=== PATIENT | male | born 1995 | race Caucasian/White ===

== ENCOUNTER 2017-02-07 19:02 | Emergency (ER) | payer BC, OTHER ==
[2017-02-07 19:11] VITALS: RESP 18
[2017-02-07] MEDS ORDERED: SODIUM CHLORIDE 0.9% 500 ML IV STA (19:18)
[2017-02-07] MEDS ORDERED: ONDANSETRON 4 MG/2 ML VIAL IVP STA (19:18)
[2017-02-07] MEDS ORDERED: SODIUM CHLORIDE 0.9% 1,000 ML IV STA (19:18)
[2017-02-07] MEDS ORDERED: ACETAMINOPHEN TAB 500 MG TAB PO STA (19:46)
[2017-02-07 20:02] LABS: Basophils % (A) 0 %; CH 33.4; CHCM 37.8; Eosinophils % (A) 0 %; HCT 40.3 % (39.0-53.0); HGB 15.1 gm/dL (13.0-17.5); Hyperchromasia Slight; Luc # (Auto) 0.22; Luc % (Auto) 2; Lymphocytes # (A) 0.9 k/uL (1.0-4.8); Lymphocytes % (A) 10 %; MCH 33.1 pg (25.0-35.0); MCHC 37.4 g/dL (31.0-37.0); MCV 88.6 fL (80.0-100.0); Mean Platelet Volume 6.8; Monocytes # (A) 0.5 k/uL (0-1.0); Monocytes % (A) 5 %; Neutrophils % (A) 83 %; RBC 4.56 m/uL (4.30-5.90); WBC 9.7 k/uL (3.8-10.6); WBC (Perox) 9.43
[2017-02-07 20:12] LABS: ALT 44 U/L (21-72); AST 31 U/L (17-59); Alkaline Phosphatase 93 U/L (38-126); Amylase <30 U/L (30-110); Anion Gap 12 mmol/L; Blood Urea Nitrogen 14 mg/dL (9-20); Calcium 9.4 mg/dL (8.4-10.2); Carbon Dioxide 29 mmol/L (22-30); Chloride 93 mmol/L (98-107); Glucose 84 mg/dL (74-99); Non-African American GFR(MDRD) >60 (>60 ml/min/1.73 sqM); Sodium 134 mmol/L (137-145); Total Bilirubin 1.3 mg/dL (0.2-1.3); Total Protein 7.1 g/dL (6.3-8.2)
[2017-02-07 20:22] LABS: Potassium 2.9 mmol/L (3.5-5.1)
[2017-02-07] MEDS ORDERED: POTASSIUM CHLORIDE ER 20 MEQ TAB.ER PO STA (20:22)
--- NOTE | 2017-02-07 20:22 | ED ---
Nausea/Vomiting/Diarrhea HPI - General Chief complaint: Nausea/Vomiting/Diarrhea Stated complaint: diarrhea/dehydration Time Seen by Provider: 02/07/17 19:18 Source: patient, RN notes reviewed Mode of arrival: ambulatory Limitations: no limitations - History of Present Illness Initial comments: 21-year-old male presents emergency department for diarrhea, dehydration. Patient states that he started after enema on and his progress into some nausea, abdominal bloating and diarrhea. Patient states that him and a couple his friends fried up some fish and states that every sick almost more feeling better except for him. Patient states that low-grade temp at home. Patient was seen at [facility] yesterday in which they do some lab work: Today , his white count was elevated at 13 and he had some monthly imbalances. Patient states the discomfort feels rundown and not himself. He denies any dysuria or hematuria. Denies any localized abdominal pain denies any back pain. - Related Data Home Medications Medication Instructions Recorded Confirmed No Known Home Medications [No 02/07/17 02/07/17 Known Home Medications] Allergies Allergy/AdvReac Type Severity Reaction Status Date / Time morphine Allergy Rash/Hives Verified 02/07/17 19:27 midazolam [From Versed] AdvReac Confusion Verified 02/07/17 19:27 promethazine [From Phenergan] AdvReac Unknown Verified 02/07/17 19:27 blood products AdvReac Unknown Uncoded 02/07/17 19:12 Review of Systems ROS Statement: Those systems with pertinent positive or pertinent negative responses have been documented in the HPI. ROS Other: All systems not noted in ROS Statement are negative. 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 Date of last positivie culture/infection: 2009 MDRO Source:: broviac line Past Surgical History: Adenoidectomy, Tonsillectomy Additional Past Surgical History / Comment(s): thoracotomy Past Psychological History: No Psychological Hx Reported Smoking Status: Never smoker Past Alcohol Use History: Occasional Past Drug Use History: None Reported General Exam Limitations: no limitations Course Vital Signs 02/07/17 02/07/17 02/07/17 19:07 19:47 20:46 Temperature 98.9 F 100.9 F H 101.0 F H Pulse Rate 97 88 Respiratory 18 18 Rate Blood Pressure 133/60 108/53 O2 Sat by Pulse 99 99 Oximetry 02/07/17 21:22 Temperature 99.0 F Pulse Rate 81 Respiratory 18 Rate Blood Pressure 115/54 O2 Sat by Pulse 97 Oximetry Medical Decision Making - Medical Decision Making 21-year-old male presents emergency department for her diarrhea nausea low- grade temp. Patient lab work is improved from prior lab work yesterday. Patient's white count went from 13-9. Patient does have some hypokalemia which was replaced with 4 mg of came here. He is advised to increase fluids including drinking Gatorade or Powerade at home. Patient's symptoms are most likely related to a viral diarrhea secondary to multiple people being sick and everyone eating fish. Especially self-limiting disease. We did obtain stool - Lab Data Result diagrams: 02/07/17 19:41 02/07/17 19:41 Lab Results 02/07/17 02/07/17 Range/Units 19:41 19:41 WBC 9.7 (3.8-10.6) k/uL RBC 4.56 (4.30-5.90) m/uL Hgb 15.1 (13.0-17.5) gm/dL Hct 40.3 (39.0-53.0) % MCV 88.6 (80.0-100.0) fL MCH 33.1 (25.0-35.0) pg MCHC 37.4 H (31.0-37.0) g/dL RDW 12.0 (11.5-15.5) % Plt Count 236 (150-450) k/uL Neutrophils % 83 % Lymphocytes % 10 % Monocytes % 5 % Eosinophils % 0 % Basophils % 0 % Neutrophils # 8.0 H (1.3-7.7) k/uL Lymphocytes # 0.9 L (1.0-4.8) k/uL Monocytes # 0.5 (0-1.0) k/uL Eosinophils # 0.0 (0-0.7) k/uL Basophils # 0.0 (0-0.2) k/uL Hyperchromasia Slight Sodium 134 L (137-145) mmol/L Potassium 2.9 L* (3.5-5.1) mmol/L Chloride 93 L (98-107) mmol/L Carbon Dioxide 29 (22-30) mmol/L Anion Gap 12 mmol/L BUN 14 (9-20) mg/dL Creatinine 1.18 (0.66-1.25) mg/dL Est GFR (MDRD) Af Amer >60 (>60 ml/min/1.73 sqM) Est GFR (MDRD) Non-Af >60 (>60 ml/min/1.73 sqM) Glucose 84 (74-99) mg/dL Calcium 9.4 (8.4-10.2) mg/dL Total Bilirubin 1.3 (0.2-1.3) mg/dL AST 31 (17-59) U/L ALT 44 (21-72) U/L Alkaline Phosphatase 93 (38-126) U/L Total Protein 7.1 (6.3-8.2) g/dL Albumin 4.2 (3.5-5.0) g/dL Amylase <30 L (30-110) U/L Lipase 16 L (23-300) U/L Disposition Clinical Impression: Diarrhea, Hypokalemia Disposition: HOME SELF-CARE Condition: Stable Instructions: Acute Diarrhea (ED) Additional Instructions: Please return to the Emergency Department if symptoms worsen or any other concerns. Referrals: Sukhdeep Wang DO [Primary Care Provider] - 1-2 days Time of Disposition: 21:29
[2017-02-07] MEDS ORDERED: SODIUM CHLORIDE 0.9% 1,000 ML IV ONE (20:29)
[2017-02-07] MEDS ORDERED: FAMOTIDINE 20 MG/2 ML VIAL IV STA (20:30)
[2017-02-07] MEDS ORDERED: KETOROLAC 30 MG/ML 1 ML VIAL IVP STA (20:37)
[2017-02-07 21:24] VITALS: BP 115/54; PULSE 81; TEMP 99
== END 2017-02-07 21:39 | disposition home or self-care (01) ==
LOC: EC 19:02
DX: R19.7 Diarrhea, unspecified (principal); E87.6 Hypokalemia; R11.2 Nausea with vomiting, unspecified; R14.0 Abdominal distension (gaseous); Z88.5 Allergy status to narcotic agent; Z88.8 Allergy status to other drugs, medicaments and biological substances; Z91.048 Other nonmedicinal substance allergy status
CPT/HCPCS: 36415; 80053; 82150; 83690; 85025; 87324; 87045; 87329; 89055; 87046; 99284; 96374; 96375 ×2; 96361 ×2; J2405; J1885

== ENCOUNTER → 2017-02-10 | Outpatient (CLI) | payer BC ==
--- NOTE | 2017-02-10 10:58 | XR ---
EXAMINATION TYPE: XR abdomen 1V , ONE VIEW DATE OF EXAM ORDERED: 02/10/2017 HISTORY: A09 diarrhea. COMPARISON: None. FINDINGS: There has been an old-appearing of the left hip. The abdominal gas pattern is within normal limits. There is no evidence of obstruction or free air. N o unusual calcifications are seen. IMPRESSION: NO ACUTE INTRA-ABDOMINAL ABNORMALITY.
--- NOTE | 2017-02-10 11:57 | XR ---
EXAMINATION TYPE: XR abdomen 2V , TWO VIEW DATE OF EXAM ORDERED: 02/10/2017 HISTORY: A09 diarrhea. COMPARISON: None. FINDINGS: There has been an old-appearing of the left hip. The abdominal gas pattern is within normal limits. There is no evidence of obstruction or free air. N o unusual calcifications are seen. IMPRESSION: NO ACUTE INTRA-ABDOMINAL ABNORMALITY.
== END | disposition home or self-care (01) ==
LOC: RADXRYALE 10:44
PROVIDERS: ATTEND Physician Assistant Medical
DX: A09 Infectious gastroenteritis and colitis, unspecified (principal)
CPT/HCPCS: 74020

== ENCOUNTER → 2018-08-27 | Outpatient (CLI) | payer BC ==
--- NOTE | 2018-08-27 14:39 | XR ---
EXAMINATION TYPE: XR chest 2V DATE OF EXAM: 08/27/2018 COMPARISON: Chest x-ray March 30, 2015. HISTORY: Left lower chest pain on and off for 2 months. TECHNIQUE: Frontal and lateral views of the chest are obtained. FINDINGS: There is no focal air space opacity, pleural effusion, or pneumothorax seen. The cardiac silhouette size is within normal limits. Spine is straightened on lateral view. IMPRESSION: No acute cardiopulmonary process.
== END | disposition home or self-care (01) ==
LOC: RADXRYALE 14:10
PROVIDERS: ATTEND Physician Assistant Medical
DX: R07.89 Other chest pain (principal)
CPT/HCPCS: 71046

== ENCOUNTER → 2018-12-29 | Outpatient (CLI) | payer BC ==
--- NOTE | 2018-12-29 13:50 | CT ---
EXAMINATION TYPE: CT femur LT wo con DATE OF EXAM: 12/29/2018 COMPARISON: CT left femur December 20, 2014 HISTORY: Mass and lump on femur just above amputation CT DLP: 560 mGycm Automated exposure control for dose reduction was used. FINDINGS: There is redemonstration of intramedullary wolf with 2 femoral neck fixating screws and proximal trans verse subtrochanteric fixating screw through fracture deformity proximal diaphysis left proximal femu r. Incomplete healing is redemonstrated. Alignment is stable. There is some more prominent lucency or nonbony healing medial aspect redemonstrated. There is overgrowth of the distal fracture fragment wi th trabeculation redemonstrated. Distal amputation is noted which was not included in [id number] on prior study. There is nonspecif ic skin and soft tissue thickening with loss of normal subcutaneous fat at this level more prominent anteriorly. No definitive cortical destruction is seen. There is severe atrophy of the left lower extremity muscles versus opposite right side beginning past fracture level with numerous clips posteriorly redemonstrated. IMPRESSION: Nonspecific soft tissue thickening at amputation site anteriorly with loss of normal surr ounding subcutaneous fat could reflect granulation tissue, infectious process is not excluded. No obv ious cortical destruction to suggest acute osteomyelitis.
== END | disposition home or self-care (01) ==
LOC: RADCTMAIN 13:16
PROVIDERS: ATTEND Family Medicine
DX: M79.89 Other specified soft tissue disorders (principal); L03.119 Cellulitis of unspecified part of limb

== ENCOUNTER → 2020-05-21 | Outpatient (CLI) | payer BC ==
--- NOTE | 2020-05-21 16:29 | XR ---
EXAMINATION TYPE: XR femur LT DATE OF EXAM: 05/21/2020 CLINICAL HISTORY: History of cancer knee amputation with pain. TECHNIQUE: Two views of the left femur are obtained. COMPARISON: CT December 29, 2018 FINDINGS: There is persistent large intramedullary wolf with 2 larger fixating proximal screws throug h the femoral neck and proximal transverse sixth screw through knee joint with moderate medial spurri ng. Shortened femur redemonstrated. Broad-based bony projection proximal to this could reflect osteoc hondroma is distal to the lesser trochanter. Multiple surgical clips in the medial soft tissue redemo nstrated. Diffuse sclerosis at this level again seen. Persistent amputation defect distal tibial meta physis level without new bony destruction. No new fracture. IMPRESSION: As above. No significant interval change from most recent CT.
== END | disposition home or self-care (01) ==
LOC: RADXRYALE 16:07
PROVIDERS: ATTEND Physician Assistant Medical
DX: D16.22 Benign neoplasm of long bones of left lower limb (principal); M89.8X5 Other specified disorders of bone, thigh; Z96.698 Presence of other orthopedic joint implants; Z89.612 Acquired absence of left leg above knee

== ENCOUNTER 2021-02-27 11:21 | Emergency (ER) | payer BC ==
[2021-02-27 11:29] VITALS: RESP 18
[2021-02-27 12:28] LABS: ALT 118 U/L (4-49); AST 124 U/L (17-59); African American GFR (CKD) >90 (>60 ml/min/1.73 sqM); Albumin 4.4 g/dL (3.5-5.0); Alkaline Phosphatase 165 U/L (38-126); Anion Gap 9 mmol/L; Blood Urea Nitrogen 15 mg/dL (9-20); Calcium 9.2 mg/dL (8.4-10.2); Carbon Dioxide 30 mmol/L (22-30); Chloride 95 mmol/L (98-107); Glucose 109 mg/dL (74-99); Non-African American GFR(CKD) >90 (>60 ml/min/1.73 sqM); Potassium 3.6 mmol/L (3.5-5.1); Sodium 134 mmol/L (137-145); Total Protein 7.1 g/dL (6.3-8.2)
[2021-02-27 12:42] LABS: HCT 44.8 % (39.0-53.0); Hyperchromasia Slight; MCH 32.1 pg (25.0-35.0); MCHC 35.6 g/dL (31.0-37.0); MCV 90.2 fL (80.0-100.0); Mean Platelet Volume 7.4; Platelet Count 207 k/uL (150-450); RBC 4.97 m/uL (4.30-5.90); RDW 12.3 % (11.5-15.5); WBC 7.2 k/uL (3.8-10.6)
--- NOTE | 2021-02-27 13:25 | ED ---
Fever HPI - General Chief Complaint: Fever Stated Complaint: Fever Time Seen by Provider: 02/27/21 11:31 Source: patient, RN notes reviewed Mode of arrival: ambulatory Limitations: no limitations - History of Present Illness Initial Comments: Patient is a 25-year-old male that presents to the emergency department complaining of fevers at home. He notes that he recently got labs drawn on Thursday and was called by his primary care today stating that he had elevated liver enzymes. Patient denied any symptoms at this time. He tested negative for Covid on Thursday. He notes that he is having a cough with minimal production. He noted that he had no other complaints or issues. He denied any chest pain shortness breath headache nausea vomiting diarrhea constipation fever fatigue chills. - Related Data Home Medications Medication Instructions Recorded Confirmed No Known Home Medications 02/07/17 02/07/17 Allergies Allergy/AdvReac Type Severity Reaction Status Date / Time morphine Allergy Rash/Hives Verified 02/27/21 11:24 midazolam [From Versed] AdvReac Confusion Verified 02/27/21 11:24 promethazine [From Phenergan] AdvReac Unknown Verified 02/27/21 11:24 blood products AdvReac Unknown Uncoded 02/07/17 19:12 Review of Systems ROS Statement: Those systems with pertinent positive or pertinent negative responses have been documented in the HPI. ROS Other: All systems not noted in ROS Statement are negative. 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 Date of last positivie culture/infection: 2009 MDRO Source:: broviac line Past Surgical History: Adenoidectomy, Tonsillectomy Additional Past Surgical History / Comment(s): thoracotomy, L below knee Past Psychological History: No Psychological Hx Reported Smoking Status: Never smoker Past Alcohol Use History: Occasional Past Drug Use History: Marijuana General Exam Limitations: no limitations General appearance: alert, in no apparent distress Head exam: Present: atraumatic, normocephalic, normal inspection Eye exam: Present: normal appearance, PERRL, EOMI, other (Left eye subconjunctival hemorrhage.). Absent: scleral icterus, conjunctival injection, periorbital swelling Neck exam: Present: normal inspection, lymphadenopathy (Isolated singular right cervical lymph node, nontender, non-fixated.) Respiratory exam: Present: normal lung sounds bilaterally. Absent: respiratory distress, wheezes, rales, rhonchi, stridor Cardiovascular Exam: Present: regular rate, normal rhythm, normal heart sounds. Absent: systolic murmur, diastolic murmur, rubs, gallop, clicks Extremities exam: Present: normal inspection, full ROM, normal capillary refill, other (Patient has a prosthetic left lower extremity.). Absent: tenderness, pedal edema, joint swelling, calf tenderness Neurological exam: Present: alert, oriented X3 Psychiatric exam: Present: normal affect, normal mood Skin exam: Present: warm, dry, intact, normal color. Absent: rash Course Vital Signs 02/27/21 11:24 Temperature 98.4 F Pulse Rate 103 H Respiratory 18 Rate Blood Pressure 128/77 O2 Sat by Pulse 98 Oximetry Medical Decision Making - Medical Decision Making 25-year-old male complaining of fevers at home, sent by primary care for elevated liver function. Labs ordered to recheck liver function. Patient was offered a second Covid test but declined due to testing negative on Thursday in stating that the one today could also be a false negative. Case discussed with Dr. Vu, patient discharge home with conservative management and follow-up primary care. - Lab Data Result diagrams: 02/27/21 11:56 02/27/21 11:56 Lab Results 02/27/21 02/27/21 Range/Units 11:56 11:56 WBC 7.2 (3.8-10.6) k/uL RBC 4.97 (4.30-5.90) m/uL Hgb 16.0 (13.0-17.5) gm/dL Hct 44.8 (39.0-53.0) % MCV 90.2 (80.0-100.0) fL MCH 32.1 (25.0-35.0) pg MCHC 35.6 (31.0-37.0) g/dL RDW 12.3 (11.5-15.5) % Plt Count 207 (150-450) k/uL MPV 7.4 Hyperchromasia Slight Sodium 134 L (137-145) mmol/L Potassium 3.6 (3.5-5.1) mmol/L Chloride 95 L (98-107) mmol/L Carbon Dioxide 30 (22-30) mmol/L Anion Gap 9 mmol/L BUN 15 (9-20) mg/dL Creatinine 1.07 (0.66-1.25) mg/dL Est GFR (CKD-EPI)AfAm >90 (>60 ml/min/1.73 sqM) Est GFR (CKD-EPI)NonAf >90 (>60 ml/min/1.73 sqM) Glucose 109 H (74-99) mg/dL Calcium 9.2 (8.4-10.2) mg/dL Total Bilirubin 1.0 (0.2-1.3) mg/dL AST 124 H (17-59) U/L ALT 118 H (4-49) U/L Alkaline Phosphatase 165 H (38-126) U/L Total Protein 7.1 (6.3-8.2) g/dL Albumin 4.4 (3.5-5.0) g/dL Disposition Clinical Impression: Viral infection Disposition: HOME SELF-CARE Condition: Stable Instructions (If sedation given, give patient instructions): Fever in Adults (ED) Additional Instructions: Please return to the Emergency Department if symptoms worsen or any other concerns. Take Tylenol and Motrin as needed for fever. Increase oral fluids. Eat as tolerated. Follow-up with primary care in the next 1-2 days. Is patient prescribed a controlled substance at d/c from ED?: No Referrals: Sukhdeep Wang DO [Primary Care Provider] - 1-2 days Time of Disposition: 13:24
[2021-02-27 13:27] LABS: Lymphocytes # (M) 3.53 k/uL (1.0-4.8); Monocytes # (M) 0.79 k/uL (0-1.0); Neutrophils # (M) 2.88 k/uL (1.3-7.7); Neutrophils % (M) 40 %; Nucleated Red Blood Cells 0 /100 WBC (0-0); Reactive Lymphocytes Present; Total Cells Counted 100
[2021-02-27 13:41] VITALS: BP 132/78; PULSE 78; TEMP 98.8
== END 2021-02-27 13:41 | disposition home or self-care (01) ==
LOC: EC 11:21
DX: B34.9 Viral infection, unspecified (principal); Z88.8 Allergy status to other drugs, medicaments and biological substances
CPT/HCPCS: 36415; 80053; 85025; 99283

== ENCOUNTER 2022-07-21 20:54 | Emergency (ER) | payer BC ==
[2022-07-21] MEDS ORDERED: ORPHENADRINE 30 MG/ML 2 ML VIAL IM STA (21:39)
[2022-07-21] MEDS ORDERED: ACETAMINOPHEN TAB 500 MG TAB PO STA (21:39)
[2022-07-21] MEDS ORDERED: KETOROLAC 15 MG/ML 1 ML VIAL IM STA (21:39)
--- NOTE | 2022-07-21 21:47 | ED ---
Upper Extremity HPI - General Chief Complaint: Extremity Injury, Upper Stated Complaint: Fall snowboarding/Lt shoulder Time Seen by Provider: 07/21/22 21:34 Source: patient, RN notes reviewed Mode of arrival: ambulatory Limitations: no limitations - History of Present Illness Initial Comments: This is a pleasant 26-year-old male who presents to emergency department complaining of left shoulder pain. Patient states she fell onto the point of her shoulder while snowboarding. Patient states sharp pain at the acromioclavicular joint area. No distal or proximal injuries. No neck pain. No back pain. There is no head or neck injury. Patient states that any movement exacerbates the pain, rest does alleviated somewhat. No headache, no fever or chills, no changes in vision or hearing, no sore throat or difficulty with speech, no neck pain, no chest pain or shortness of breath, no abdominal pain, no nausea or vomiting, no changes in urination or bowel movements, no numbness or tingling, no extremity pain, no skin rashes or lesions. Past medical, surgical, social, and family history reviewed. MD Complaint: Injury to:: left, shoulder - Related Data Previous Rx's Medication Instructions Recorded Acetaminophen Tab [Tylenol Tab] 500 mg PO Q6H PRN #24 tablet 07/21/22 Cyclobenzaprine [Flexeril] 10 mg PO TID PRN #20 tab 07/21/22 Naproxen [Naprosyn] 375 mg PO Q12HR PRN #20 tablet 07/21/22 Allergies Allergy/AdvReac Type Severity Reaction Status Date / Time morphine Allergy Rash/Hives Verified 07/21/22 21:33 midazolam [From Versed] AdvReac Confusion Verified 07/21/22 21:33 promethazine [From Phenergan] AdvReac Unknown Verified 07/21/22 21:33 blood products AdvReac Unknown Uncoded 07/21/22 21:33 Review of Systems ROS Statement: Those systems with pertinent positive or pertinent negative responses have been documented in the HPI. ROS Other: All systems not noted in ROS Statement are negative. 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 Limitations: no limitations General appearance: alert, in no apparent distress Head exam: Present: atraumatic, normocephalic, normal inspection Eye exam: Present: normal appearance, PERRL, EOMI. Absent: scleral icterus, conjunctival injection, periorbital swelling ENT exam: Present: normal exam, mucous membranes moist Neck exam: Present: normal inspection. Absent: tenderness, meningismus, lymphadenopathy Respiratory exam: Present: normal lung sounds bilaterally. Absent: respiratory distress, wheezes, rales, rhonchi, stridor Cardiovascular Exam: Present: regular rate, normal rhythm, normal heart sounds. Absent: systolic murmur, diastolic murmur, rubs, gallop, clicks GI/Abdominal exam: Present: soft. Absent: distended, tenderness, guarding, rebound, rigid Extremities exam: Present: normal inspection, tenderness (Patient has tenderness at the left acromioclavicular joint area. No break in skin integrity. No crepitus. Him and his range of motion with regards to left shoulder.), normal capillary refill, other (Remainder of the orthopedic examination is benign.). Absent: full ROM, pedal edema, joint swelling, calf tenderness Back exam: Present: normal inspection Neurological exam: Present: alert, oriented X3, CN II-XII intact Psychiatric exam: Present: normal affect, normal mood Skin exam: Present: warm, dry, intact, normal color. Absent: rash Course Vital Signs 07/21/22 21:31 Temperature 97.9 F Pulse Rate 96 Respiratory 20 Rate Blood Pressure 139/88 O2 Sat by Pulse 98 Oximetry Medical Decision Making - Medical Decision Making Was pt. sent in by a medical professional or institution? @ -no Did you speak to anyone other than the patient for history? @ -no Did you review nursing and triage notes? @ -agree Were old charts reviewed? @ -no Differential Diagnosis? @ -Left shoulder strain, left shoulder sprain, acromioclavicular joint sprain, left shoulder dislocation, left clavicle fracture, left humerus fracture, does not appear to be consistent with other chest injury. This is not an all- inclusive list Considered the patient's history of osteosarcoma in his left leg when interpreting the x-rays. X-rays interpreted by me (1pt min.)? @ -[Plain film x-rays of the left shoulder and acromioclavicular joints read by me consistent with a left acromioclavicular joint separation.] Did you discuss the management of the patient with other professionals? @ -ED attending physician Was patient admitted / discharged? @ -Patient educated on findings. Educated on conservative therapy. Sling applied. Neurovascular status intact. Discussed conservative therapy and orthopedic follow-up. Patient concurs with this treatment plan. Undiagnosed new problem with uncertain prognosis? @ -[none] Drug Therapy requiring intensive monitoring for toxicity (Heparin, Nitro, Insulin, Cardizem)? @ -[none] Were any procedures done? @ -Sling application Diagnosis/symptom? @ -See the diagnosis section Acute, or Chronic, or Acute on Chronic? @ -Acute Uncomplicated Patient was told to return to the ER for any signs or symptoms worsen. Told to return immediately if any other problems arise. All questions answered. Treatment plan discussed. Patient in agreement Every effort has been made to ensure accuracy of this dictation. However, due to the limitations of electronic medical records and dictation devices, errors in charting still occur. Supervising Dr. Del Toro - Radiology Data Radiology results: report reviewed, image reviewed Independent interpretation of the left shoulder x-ray and x-ray of the bilateral acromioclavicular joints by me shows evidence of a separation involving the l eft acromioclavicular joint. No other acute findings. Radiology report is delayed Disposition Clinical Impression: Separation of left acromioclavicular joint Disposition: HOME SELF-CARE Condition: Good Instructions (If sedation given, give patient instructions): Acromioclavicular Separation (ED), How to Use a Sling (ED) Additional Instructions: Follow-up with your regular physician as directed. Return to the ER immediately if any symptoms worsen, new symptoms arise, or any other problems develop. Call tomorrow morning to set up a follow-up appointment with the orthopedic physician. Prescriptions: Cyclobenzaprine [Flexeril] 10 mg PO TID PRN #20 tab PRN Reason: Spasms Naproxen [Naprosyn] 375 mg PO Q12HR PRN #20 tablet PRN Reason: Pain Acetaminophen Tab [Tylenol Tab] 500 mg PO Q6H PRN #24 tablet PRN Reason: Pain Is patient prescribed a controlled substance at d/c from ED?: No Referrals: Aundrea Perez DO [Doctor of Osteopathic Medicine] - 07/23/22 Time of Disposition: 22:07
--- NOTE | 2022-07-21 22:05 | XR ---
EXAMINATION TYPE: XR shoulder complete LT DATE OF EXAM: 07/21/2022 COMPARISON: NONE HISTORY: Shoulder pain TECHNIQUE: 3 views FINDINGS: Glenohumeral joint is intact. I see no fracture nor dislocation. No pathologic calcificatio n. Scapula is intact IMPRESSION: Negative left shoulder exam
--- NOTE | 2022-07-21 22:06 | XR ---
EXAMINATION TYPE: XR AC joint BILAT DATE OF EXAM: 07/21/2022 COMPARISON: NONE HISTORY: Left shoulder pain TECHNIQUE: 4 views FINDINGS: Frontal views of the AC joints were obtained with and without weights. The left AC joint sp rachell is 2 mm without weights. The AC joint space is 4 mm with the weights. The right AC joint space is 2 mm with weights. No fracture seen. IMPRESSION: There is very slight widening of the left AC joint space with the weight bearing view and consistent with a minimal tear
[2022-07-21 22:59] VITALS: BP 128/58; PULSE 90; RESP 18; TEMP 97.6
== END 2022-07-21 22:50 | disposition home or self-care (01) ==
LOC: EC 20:54
DX: S43.102A Unspecified dislocation of left acromioclavicular joint, initial encounter (principal); F12.90 Cannabis use, unspecified, uncomplicated; Z88.4 Allergy status to anesthetic agent; Z88.5 Allergy status to narcotic agent; Z88.8 Allergy status to other drugs, medicaments and biological substances; W18.30XA Fall on same level, unspecified, initial encounter; Y93.23 Activity, snow (alpine) (downhill) skiing, snowboarding, sledding, tobogganing and snow tubing
CPT/HCPCS: 73030; 73050; 99283; 96372 ×2; J2360; J1885

== ENCOUNTER 2024-04-09 02:46 | Emergency (ER) | payer BC ==
[2024-04-09] MEDS: SODIUM CHLORIDE 0.9% 2,000 ML IV STA (05:32)
[2024-04-09 05:46] LABS: Basophils % (A) 0 %; Eosinophils # (A) 0.1 k/uL (0-0.7); Eosinophils % (A) 1 %; HCT 42.5 % (39.0-53.0); HGB 14.1 gm/dL (13.0-17.5); Lymphocytes # (A) 1.2 k/uL (1.0-4.8); Lymphocytes % (A) 20 %; MCHC 33.3 g/dL (31.0-37.0); MCV 90.3 fL (80.0-100.0); Mean Platelet Volume 6.8; Monocytes # (A) 0.3 k/uL (0-1.0); Monocytes % (A) 5 %; Neutrophils # (A) 4.4 k/uL (1.3-7.7); Neutrophils % (A) 73 %; Platelet Count 348 k/uL (150-450); RBC 4.71 m/uL (4.30-5.90); RDW 11.8 % (11.5-15.5)
[2024-04-09 05:51] LABS: Appearance,Urine Clear (Clear); Bilirubin,Urine Negative (Negative); Blood,Urine Negative (Negative); Color,Urine Colorless; Glucose,Urine (UA) Negative (Negative); Ketones,Urine Negative (Negative); Leukocyte Esterase,Urine Negative (Negative); Nitrite,Urine Negative (Negative); Protein,Urine Negative (Negative); Specific Gravity,Urine 1.008 (1.001-1.035); Urobilinogen,Urine <2.0 mg/dL (<2.0)
--- NOTE | 2024-04-09 06:16 | ED ---
Abdominal Pain HPI - General Chief Complaint: Abdominal Pain Stated Complaint: abd pain Time Seen by Provider: 04/09/24 02:50 Source: patient Mode of arrival: ambulatory Limitations: no limitations - History of Present Illness Initial Comments: 28-year-old male presents emergency department reporting abdominal pain. States that it is located on the right side in the upper quadrant. Patient has associated nausea. Denies vomiting. No hematemesis. He did follow with his primary care doctor and was told that he had some elevation in his kidney function. Patient is concerned that the pain may be related to his kidneys. He denies dysuria, hematuria or difficulty voiding. Denies diarrhea, constipation, black or bloody stools. No other alleviating, precipitating or modifying factors - Related Data Previous Rx's Medication Instructions Recorded Acetaminophen Tab [Tylenol Tab] 500 mg PO Q6H PRN #24 tablet 07/21/22 Cyclobenzaprine [Flexeril] 10 mg PO TID PRN #20 tab 07/21/22 Naproxen [Naprosyn] 375 mg PO Q12HR PRN #20 tablet 07/21/22 Allergies Allergy/AdvReac Type Severity Reaction Status Date / Time morphine Allergy Rash/Hives Verified 04/09/24 02:50 midazolam [From Versed] AdvReac Confusion Verified 04/09/24 02:50 promethazine [From Phenergan] AdvReac Unknown Verified 04/09/24 02:50 blood products AdvReac Unknown Uncoded 04/09/24 02:50 Review of Systems ROS Statement: Those systems with pertinent positive or pertinent negative responses have been documented in the HPI. ROS Other: All systems not noted in ROS Statement are negative. 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 Absent: scleral icterus, conjunctival injection, periorbital swelling ENT exam: Present: normal exam, mucous membranes moist Neck exam: Present: normal inspection. Absent: tenderness, meningismus, lymphadenopathy Respiratory exam: Present: normal lung sounds bilaterally. Absent: respiratory distress, wheezes, rales, rhonchi, stridor Cardiovascular Exam: Present: normal rhythm, tachycardia, normal heart sounds. Absent: systolic murmur, diastolic murmur, rubs, gallop, clicks GI/Abdominal exam: Present: soft, normal bowel sounds. Absent: distended, tenderness, guarding, rebound, rigid Extremities exam: Present: normal inspection, full ROM, normal capillary refill. Absent: tenderness, pedal edema, joint swelling, calf tenderness Back exam: Present: normal inspection Neurological exam: Present: alert, oriented X3, CN II-XII intact Psychiatric exam: Present: normal affect, normal mood Skin exam: Present: warm, dry, intact, normal color. Absent: rash Course Vital Signs 04/09/24 04/09/24 04/09/24 02:47 07:12 07:44 Temperature 98.5 F 97.9 F 98.4 F Pulse Rate 108 H 86 82 Respiratory 20 18 18 Rate Blood Pressure 146/89 128/73 128/76 O2 Sat by Pulse 99 100 99 Oximetry Medical Decision Making - Medical Decision Making Was pt. sent in by a medical professional or institution (HEATHER Contreras, CERTIFIED NURSE PRACTITIONER, urgent care, hospital, or detention...) When possible be specific @ -No Did you speak to anyone other than the patient for history (EMS, parent, family, police, friend...)? What history was obtained from this source @ -No Did you review nursing and triage notes (agree or disagree)? Why? @ -I reviewed and agree with nursing and triage notes Were old charts reviewed (outside hosp., previous admission, EMS record, old EKG, old radiological studies, urgent care reports/EKG's, detention records)? Report findings @ -No old charts were reviewed Differential Diagnosis (chest pain, altered mental status, abdominal pain women, abdominal pain men, vaginal bleeding, weakness, fever, dyspnea, syncope, headache, dizziness, GI bleed, back pain, seizure, CVA, palpatations, mental health, musculoskeletal)? @ -Differential Abdominal Pain Men: Appendicitis, cholecystitis, diverticulosis, ischemic bowel, pancreatitis, hepatitis, UTI, gastroenteritis, AAA, incarcerated hernia, bowel obstruction, constipation, inflammatory bowel, hepatitis, peptic ulcer disease, splenic infarction, perforated viscus, testicular torsion, this is not meant to be an all-inclusive list EKG interpreted by me (3pts min.). @ -Not done X-rays interpreted by me (1pt min.). @ -None done CT interpreted by me (1pt min.). @ -None done U/S interpreted by me (1pt. min.). @ -None done What testing was considered but not performed or refused? (CT, X-rays, U/S, labs)? Why? @ -None What meds were considered but not given or refused? Why? @ -None Did you discuss the management of the patient with other professionals (professionals i.e. , PA, CERTIFIED NURSE PRACTITIONER, lab, RT, psych nurse, social work coordinator, lumber planer, teacher, licensed mortgage loan officer, pillowcase sewer)? Give summary @ -No Was smoking cessation discussed for >3mins.? @ -No Was critical care preformed (if so, how long)? @ -No Were there social determinants of health that impacted care today? How? (Homelessness, low income, unemployed, alcoholism, drug addiction, transportatio n, low edu. Level, literacy, decrease access to med. care, fpc, rehab)? @ -No Was there de-escalation of care discussed even if they declined (Discuss DNR or withdrawal of care, Hospice)? DNR status @ -No What co-morbidities impacted this encounter? (DM, HTN, Smoking, COPD, CAD, Cancer, CVA, ARF, Chemo, Hep., AIDS, mental health diagnosis, sleep apnea, morbid obesity)? @ -None Was patient admitted / discharged? Hospital course, mention meds given and route, prescriptions, significant lab abnormalities, going to OR and other pertinent info. @ -Upon arrival patient seen and evaluated in room 29. Thorough history and physical exam was performed. IV access was established. Laboratory studies are conducted. CT of the abdomen was performed with contrast. Upon return the results they are discussed with the patient. I did discuss the diagnosis, differential and treatment options. Patient will be discharged home at this time and instructed to follow-up with his primary care doctor for further testing. Return for any new or worsening symptoms. Patient agreeable plan was discharged in stable condition Undiagnosed new problem with uncertain prognosis? @ -Yes Drug Therapy requiring intensive monitoring for toxicity (Heparin, Nitro, Insulin, Cardizem)? @ -No Were any procedures done? @ -No Diagnosis/symptom? @ -Acute abdominal pain Acute, or Chronic, or Acute on Chronic? @ -Acute Uncomplicated (without systemic symptoms) or Complicated (systemic symptoms)? @ -Complicated Side effects of treatment? @ -No Exacerbation, Progression, or Severe Exacerbation? @ -No Poses a threat to life or bodily function? How? (Chest pain, USA, ID, pneumonia, PE, COPD, DKA, ARF, appy, cholecystitis, CVA, Diverticulitis, Homicidal, Suicidal, threat to staff... and all critical care pts) @ -No - Lab Data Result diagrams: 04/09/24 05:19 04/09/24 05:19 Lab Results 04/09/24 04/09/24 04/09/24 Range/Units 05:19 05:19 05:19 WBC 6.0 (3.8-10.6) k/uL RBC 4.71 (4.30-5.90) m/uL Hgb 14.1 (13.0-17.5) gm/dL Hct 42.5 (39.0-53.0) % MCV 90.3 (80.0-100.0) fL MCH 30.0 (25.0-35.0) pg MCHC 33.3 (31.0-37.0) g/dL RDW 11.8 (11.5-15.5) % Plt Count 348 (150-450) k/uL MPV 6.8 Neutrophils % 73 % Lymphocytes % 20 % Monocytes % 5 % Eosinophils % 1 % Basophils % 0 % Neutrophils # 4.4 (1.3-7.7) k/uL Lymphocytes # 1.2 (1.0-4.8) k/uL Monocytes # 0.3 (0-1.0) k/uL Eosinophils # 0.1 (0-0.7) k/uL Basophils # 0.0 (0-0.2) k/uL Sodium 140 (137-145) mmol/L Potassium 3.7 (3.5-5.1) mmol/L Chloride 101 (98-107) mmol/L Carbon Dioxide 30 (22-30) mmol/L Anion Gap 9 mmol/L BUN 21 H (9-20) mg/dL Creatinine 0.97 (0.66-1.25) mg/dL Est GFR (CKD-EPI)AfAm >90 (>60 ml/min/1.73 sqM) Est GFR (CKD-EPI)NonAf >90 (>60 ml/min/1.73 sqM) Glucose 114 H (74-99) mg/dL Plasma Lactic Acid Douglas (0.7-2.0) mmol/L Calcium 10.2 (8.4-10.2) mg/dL Total Bilirubin 0.8 (0.2-1.3) mg/dL AST 30 (17-59) U/L ALT 26 (4-49) U/L Alkaline Phosphatase 90 (38-126) U/L Creatine Kinase 137 (55-170) U/L Total Protein 7.3 (6.3-8.2) g/dL Albumin 4.7 (3.5-5.0) g/dL Lipase 56 (23-300) U/L Urine Color Colorless Urine Appearance Clear (Clear) Urine pH 6.0 (5.0-8.0) Ur Specific [place] 1.008 (1.001-1.035) Urine Protein Negative (Negative) Urine Glucose (UA) Negative (Negative) Urine Ketones Negative (Negative) Urine Blood Negative (Negative) Urine Nitrite Negative (Negative) Urine Bilirubin Negative (Negative) Urine Urobilinogen <2.0 (<2.0) mg/dL Ur Leukocyte Esterase Negative (Negative) 04/09/24 Range/Units 05:19 WBC (3.8-10.6) k/uL RBC (4.30-5.90) m/uL Hgb (13.0-17.5) gm/dL Hct (39.0-53.0) % MCV (80.0-100.0) fL MCH (25.0-35.0) pg MCHC (31.0-37.0) g/dL RDW (11.5-15.5) % Plt Count (150-450) k/uL MPV Neutrophils % % Lymphocytes % % Monocytes % % Eosinophils % % Basophils % % Neutrophils # (1.3-7.7) k/uL Lymphocytes # (1.0-4.8) k/uL Monocytes # (0-1.0) k/uL Eosinophils # (0-0.7) k/uL Basophils # (0-0.2) k/uL Sodium (137-145) mmol/L Potassium (3.5-5.1) mmol/L Chloride (98-107) mmol/L Carbon Dioxide (22-30) mmol/L Anion Gap mmol/L BUN (9-20) mg/dL Creatinine (0.66-1.25) mg/dL Est GFR (CKD-EPI)AfAm (>60 ml/min/1.73 sqM) Est GFR (CKD-EPI)NonAf (>60 ml/min/1.73 sqM) Glucose (74-99) mg/dL Plasma Lactic Acid [place] 1.2 (0.7-2.0) mmol/L Calcium (8.4-10.2) mg/dL Total Bilirubin (0.2-1.3) mg/dL AST (17-59) U/L ALT (4-49) U/L Alkaline Phosphatase (38-126) U/L Creatine Kinase (55-170) U/L Total Protein (6.3-8.2) g/dL Albumin (3.5-5.0) g/dL Lipase (23-300) U/L Urine Color Urine Appearance (Clear) Urine pH (5.0-8.0) Ur Specific [place] (1.001-1.035) Urine Protein (Negative) Urine Glucose (UA) (Negative) Urine Ketones (Negative) Urine Blood (Negative) Urine Nitrite (Negative) Urine Bilirubin (Negative) Urine Urobilinogen (<2.0) mg/dL Ur Leukocyte Esterase (Negative) Disposition Clinical Impression: Abdominal pain Disposition: HOME SELF-CARE Condition: Stable Instructions (If sedation given, give patient instructions): Abdominal Pain (ED) Additional Instructions: Please follow-up with your primary care doctor for further patient of your symptoms. Return for any new or worsening symptoms Is patient prescribed a controlled substance at d/c from ED?: No Referrals: Sukhdeep Wang DO [Primary Care Provider] - 1-2 days Time of Disposition: 07:27
[2024-04-09 06:45] LABS: ALT 26 U/L (4-49); AST 30 U/L (17-59); African American GFR (CKD) >90 (>60 ml/min/1.73 sqM); Albumin 4.7 g/dL (3.5-5.0); Alkaline Phosphatase 90 U/L (38-126); Anion Gap 9 mmol/L; Blood Urea Nitrogen 21 mg/dL (9-20); Calcium 10.2 mg/dL (8.4-10.2); Carbon Dioxide 30 mmol/L (22-30); Chloride 101 mmol/L (98-107); Creatine Kinase 137 U/L (55-170); Glucose 114 mg/dL (74-99); Lipase 56 U/L (23-300); Non-African American GFR(CKD) >90 (>60 ml/min/1.73 sqM); Potassium 3.7 mmol/L (3.5-5.1); Sodium 140 mmol/L (137-145); Total Bilirubin 0.8 mg/dL (0.2-1.3); Total Protein 7.3 g/dL (6.3-8.2)
--- NOTE | 2024-04-09 07:07 | CT ---
EXAMINATION TYPE: CT abdomen pelvis w con CT DLP: 904.1 mGycm, Automated exposure control for dose reduction was used. DATE OF EXAM: 04/09/2024 6:59 AM COMPARISON: CT abdomen pelvis most recent from CLINICAL INDICATION: Male, 28 years old with history of abdominal pain; RLQ pain TECHNIQUE: Axial CT abdomen pelvis w con;Sagittal and coronal reformats were created on a separate w orkstation. Contrast used:100 mL of Isovue 300 with IV Contrast, (none if empty) Oral contrast used: without Oral Contrast (none if empty) FINDINGS: LOWER CHEST: Unremarkable ABDOMEN LIVER: Unremarkable GALLBLADDER AND BILE DUCTS: Unremarkable. PANCREAS: Unremarkable. SPLEEN: Unremarkable. ADRENAL GLANDS: Unremarkable. KIDNEYS AND URETERS: No evidence of hydronephrosis or renal calculus. The ureters are unremarkable. The right ureter is slightly more prominent compared to the left. PELVIS BLADDER: Unremarkable REPRODUCTIVE: Unremarkable. ABDOMEN & PELVIS STOMACH AND BOWEL: No evidence of bowel obstruction. PERITONEUM/RETROPERITONEUM: No evidence of pneumoperitoneum or free fluid. VASCULATURE: No evidence of aortic aneurysm. MUSCULOSKELETAL: No acute osseous abnormalities the left fixation hardware appears intact. Prior mid femoral fracture partially visualized. LYMPH NODES: No gross evidence for lymphadenopathy. SOFT TISSUE/ABDOMINAL WALL: Unremarkable IMPRESSION: No evidence for acute process. The appendix is normal. No obstructive uropathy or renal calculus. The right ureter is slightly more prominent. Correlate for recently passed stone.
[2024-04-09 07:15] VITALS: RESP 18
[2024-04-09] MEDS: ACET/COD 300 MG/30 MG STARTER PACK 6 TAB BTL PO STA (07:32)
[2024-04-09 07:46] VITALS: BP 128/76; PULSE 82; TEMP 98.4
== END 2024-04-09 07:44 | disposition home or self-care (01) ==
LOC: EC 02:46
DX: R10.9 Unspecified abdominal pain (principal)
CPT/HCPCS: 36415; 74177; 80053; 81003; 82550; 83605; 83690; 85025; 96360; 99284